=== PATIENT | male | born 1960 | race Two or more races ===

== ENCOUNTER 2020-03-07 09:27 | Emergency (ER) | payer OTHER, MEDICAID ==
[~2020-03-07] VITALS: Ht 172.7 cm; Wt 78.5 kg
[2020-03-07 12:11] VITALS: BP 110/59
== END 2020-03-07 12:42 | disposition home or self-care (01) ==
LOC: ER 09:27
DX: J40 Bronchitis, not specified as acute or chronic (principal); R06.02 Shortness of breath
CPT/HCPCS: 71045; 93005